=== PATIENT | male | born 2000 | race Caucasian/White ===

== ENCOUNTER 2018-08-21 08:50 | Emergency (ER) | payer OTHER ==
--- NOTE | 2018-08-21 08:50 | EDPHY ---
HPI/HX/ROS/PE/MDM Narrative: CHIEF COMPLAINT: Chest and abdominal pain. HPI: This is a 18 y/o male arriving via EMS from [facility] complaining of chest and abdominal pain that began 12 hours ago while studying. He took 15mg Adderall around 15:30 yesterday and took another 10mg Adderall around 17:30 last night. Around 21:30, 12 hours ago, he had a light headache then developed what he describes as sudden intense centralized chest pain. Lying down helped slightly, but worsened over the next hour. He was able to sleep, but woke around 05:00 this morning "in tears" with a slightly fast heart rate and chest tightness that felt "like someone sticking a knife through my chest." He took .75mg alprazolam, which helped briefly, but then decided to go to [facility] for evaluation who referred him to the ED. Moving and deep inspiration exacerbates symptoms. He describes his pain as located underneath his sternum and dissimilar to muscle soreness. He denies any recent trauma, abnormal workouts, or recent illness. He is typically healthy. REVIEW OF SYSTEMS: A comprehensive 10 system review of systems is otherwise negative aside from elements mentioned in the history of present illness. PMH: ADHD - Adderall; alprazolam prescribed SOCIAL HISTORY: [employer] student. Single. From [place]. PHYSICAL EXAM: General:Patient is alert, in no acute distress. ENT:Eyes are normal to inspection. ENT inspection normal. Neck: Normal inspection. Full range of motion. Respiratory:No respiratory distress. Breath sounds normal bilaterally. Cardiovascular: Regular rate and rhythm. Strong peripheral pulses. Normal cap refill. Abdomen:The abdomen is nontender to palpation. There are no peritoneal signs. Back: Normal to inspection. No tenderness to palpation. Skin: Normal color. No rash. Warm and dry. Extremities: Normal appearance. Full range of motion. Neuro: Oriented x3. Normal motor function. Normal sensory function. ED Course: This is a healthy 18 y/o male who presents with a 12-hour history of pleuritic substernal chest pain that is aggravated by movement in the setting of recent Adderall use. His exam is unremarkable. Plan for IV, labs, chest x-ray, EKG, symptomatic management. 1L IV NS, 30mg IV Toradol, 0.5mg IV Ativan ordered. The 12 lead EKG was interpreted by myself. See hard copy and/or "[email or web address]" electronic copy for interpretation. Chest x-ray: nothing acute Labs including d-dimer, POC troponin are normal. Reassessed patient and discussed findings. He continues to be uncomfortable and describes acid reflux symptoms. Will try GI cocktail. Reassessed patient. His pain has completely resolved after GI cocktail. Discussed utility of chest CT to further investigate his symptoms, but he is comfortable following up as an outpatient and returning if symptoms return or worsen. Recommended taking Zantac OTC for acid reflux. Standard care instructions and return precautions discussed. He is comfortable with this plan. MDM: This is a young healthy male who presents with atypical chest pain. We performed an extensive workup including CXR, ECG, lipase, troponin and other labs, all of which are negative. The patient's symptoms have resolved after toradol and especially GI cocktail. His HEART score is lowest possible. I see no signs of PE, PTx, ACS, PNA, pericarditis. I considered TAD but patient has no risk factors for this disease, has a negative CXR, has a negative d-dimer, and has refused CT evaluation which would be necessary to fully rule out. I suspect his initial tachycardia was related to overuse of ritalin, and this has resolved with IVNS and low-dose IV ativan. He is comfortable with plan for discharge home and cardiology referral. He understands the etiology of his chest pain remains unknown. - Data Points Imaging Results: Imaging Impressions Chest X-Ray 08/21/18 08:54 Impression: No acute findings in the chest. Imaging: I viewed and interpreted images myself Laboratory Results: Laboratory Results 08/21/18 08:45 08/21/18 08:45 08/21/18 08/21/18 08/21/18 09:11 08:45 08:45 WBC RBC Hgb Hct MCV MCH MCHC RDW Plt Count MPV Neut % (Auto) Lymph % (Auto) [place] % (Auto) Eos % (Auto) Baso % (Auto) Nucleat RBC Rel Count Absolute Neuts (auto) Absolute Lymphs (auto) Absolute Monos (auto) Absolute Eos (auto) Absolute Basos (auto) Absolute Nucleated RBC Immature Gran % Immature Gran # D-Dimer Sodium 139 mEq/L mEq/L (135-145) Potassium 4.1 mEq/L mEq/L (3.5-5.2) Chloride 104 mEq/L mEq/L (97-110) Carbon Dioxide 26 mEq/l mEq/l (22-31) Anion Gap 9 mEq/L mEq/L (6-14) BUN 19 mg/dL mg/dL (7-23) Creatinine 0.8 mg/dL mg/dL (0.7-1.3) Estimated GFR > 60 Glucose 100 mg/dL mg/dL (70-100) Calcium 9.4 mg/dL mg/dL (8.5-10.4) Total Bilirubin 1.4 mg/dL mg/dL (0.1-1.4) Conjugated Bilirubin 0.3 mg/dL mg/dL (0.0-0.5) Unconjugated Bilirubin 1.1 mg/dL mg/dL (0.0-1.1) AST 28 IU/L IU/L (17-59) ALT 30 IU/L IU/L (21-72) Alkaline Phosphatase 118 IU/L IU/L (38-126) POC Troponin I 0.01 ng/mL ng/mL (0.00-0.08) Total Protein 7.6 g/dL g/dL (6.3-8.2) Albumin 4.4 g/dL g/dL (3.5-5.0) Lipase 32 IU/L IU/L (23-300) 08/21/18 08/21/18 08:45 08:45 WBC 9.05 10^3/uL 10^3/uL (3.80-9.50) RBC 5.45 10^6/uL 10^6/uL (4.40-6.38) Hgb 16.3 g/dL g/dL (13.7-17.5) Hct 45.0 % % (40.0-51.0) MCV 82.6 fL fL (81.5-99.8) MCH 29.9 pg pg (27.9-34.1) MCHC 36.2 g/dL g/dL (32.4-36.7) RDW 12.0 % % (11.5-15.2) Plt Count 128 10^3/uL L 10^3/uL (150-400) MPV 11.6 fL fL (8.7-11.7) Neut % (Auto) 75.9 % H % (39.3-74.2) Lymph % (Auto) 12.5 % L % (15.0-45.0) [place] % (Auto) 10.3 % % (4.5-13.0) Eos % (Auto) 0.8 % % (0.6-7.6) Baso % (Auto) 0.3 % % (0.3-1.7) Nucleat RBC Rel Count 0.0 % % (0.0-0.2) Absolute Neuts (auto) 6.87 10^3/uL H 10^3/uL (1.70-6.50) Absolute Lymphs (auto) 1.13 10^3/uL 10^3/uL (1.00-3.00) Absolute Monos (auto) 0.93 10^3/uL H 10^3/uL (0.30-0.80) Absolute Eos (auto) 0.07 10^3/uL 10^3/uL (0.03-0.40) Absolute Basos (auto) 0.03 10^3/uL 10^3/uL (0.02-0.10) Absolute Nucleated RBC 0.00 10^3/uL 10^3/uL (0-0.01) Immature Gran % 0.2 % % (0.0-1.1) Immature Gran # 0.02 10^3/uL 10^3/uL (0.00-0.10) D-Dimer 0.27 ug/mLFEU ug/mLFEU (0.00-0.50) Sodium Potassium Chloride Carbon Dioxide Anion Gap BUN Creatinine Estimated GFR Glucose Calcium Total Bilirubin Conjugated Bilirubin Unconjugated Bilirubin AST ALT Alkaline Phosphatase POC Troponin I Total Protein Albumin Lipase Medications Given: Discontinued Medications Al Hydroxide/Mg Hydroxide (Maalox Susp) 30 ml PO ONCE ONE Stop: 08/21/18 10:52 Last Admin: 08/21/18 11:03 Dose: 30 ml Hyoscyamine Sulfate (Levsin, Hyomax-Sl) 0.25 mg PO ONCE ONE Stop: 08/21/18 10:52 Last Admin: 08/21/18 11:03 Dose: 0.25 mg Sodium Chloride (Ns) 1,000 mls @ 0 mls/hr IV EDNOW ONE; Wide Open PRN Reason: Protocol Stop: 08/21/18 08:54 Last Admin: 08/21/18 09:35 Dose: 1,000 mls Ketorolac Tromethamine (Toradol) 30 mg IVP EDNOW ONE Stop: 08/21/18 09:35 Last Admin: 08/21/18 09:52 Dose: 30 mg Lidocaine (Lidocaine 2% Viscous) 15 ml PO ONCE ONE Stop: 08/21/18 10:52 Last Admin: 08/21/18 11:03 Dose: 15 ml Lorazepam (Ativan Injection) 0.5 mg IVP EDNOW ONE Stop: 08/21/18 09:41 Last Admin: 08/21/18 09:54 Dose: 0.5 mg Point of Care Test Results: Chemistry 08/21/18 09:11 POC Troponin I 0.01 ng/mL ng/mL (0.00-0.08) General Time Seen by Provider: 08/21/18 08:50 Initial Vital Signs: Initial Vital Signs Temperature (C) 36.9 C 08/21/18 08:54 Heart Rate 100 08/21/18 08:54 Respiratory Rate 16 08/21/18 08:54 Blood Pressure 135/86 H 08/21/18 08:54 O2 Sat (%) 100 08/21/18 08:54 O2 Delivery Mode Room Air Allergies/Adverse Reactions: No Known Allergies Allergy (Unverified 06/13/16 03:25) Home Medications: Medication Instructions Recorded Amoxicillin 06/13/16 Polyethylene Glycol 3350 [Miralax 17 gm PO DAILY #4 pkt 06/13/16 17 gm (*)] Pseudoephedrine HCl 06/13/16 Departure - Departure Disposition: Home, Routine, Self-Care Clinical Impression: Chest pain Condition: Good Instructions: Chest Pain (ED), Gastroesophageal Reflux Disease (ED) Additional Instructions: Take Zantac as directed on the packaging for symptoms. Follow up with a foundation assistant in the next 2-3 days for reevaluation. Return for worsening of condition. Referrals: Chris Khan MD [Medical Doctor] - As per Instructions Report Scribed for: Demarco Barnett Report Scribed by: Rebecca Shaver Date of Report: 08/21/18 Time of Report: 08:51 Physician Review and Approval Statement: Portions of this note were transcribed by an ED scribe. I personally performed the history, physical exam, and medical decision making; and confirm the accuracy of the information in the transcribed note.
[2018-08-21] MEDS ORDERED: NS 1,000 ML IV ONE (08:53)
[2018-08-21 09:19] LABS: PLATELET COUNT 128 10^3/uL (150-400)
[2018-08-21] MEDS ORDERED: KETOROLAC 30 MG/1 ML SDV IVP ONE (09:34)
[2018-08-21] MEDS ORDERED: LORazepam 2 MG/ML INJ IVP ONE (09:40)
[2018-08-21] MEDS ORDERED: MAG HYDROX/AL HYDROX/SIMETH 30 ML UDCUP PO ONE (10:51)
[2018-08-21] MEDS ORDERED: LIDOCAINE 2% VISCOUS 15 ML UDCUP PO ONE (10:51)
[2018-08-21] MEDS ORDERED: HYOSCYAMINE SULFATE 0.125 MG TAB PO ONE (10:51)
[2018-08-21 11:54] VITALS: BP 115/84
== END 2018-08-21 12:06 | disposition home or self-care (01) ==
LOC: EDUNIT#
DX: R07.9 Chest pain, unspecified (principal); R10.9 Unspecified abdominal pain; E86.9 Volume depletion, unspecified
CPT/HCPCS: 84484-ER; 96374; J1885; J2060